=== PATIENT | female | born 1965 | race Caucasian/White ===

== ENCOUNTER → 2020-04-28 14:17 | Outpatient (BNVA) | payer BC, SELFPAY | PROVIDERS: Family Provider Pediatrics; PCP Pediatrics; Visit Provider Nurse Practitioner Family | DX: Z20.828 Contact with and (suspected) exposure to other viral communicable diseases (principal); J06.9 Acute upper respiratory infection, unspecified | CPT/HCPCS: 87635 ==

== ENCOUNTER → 2020-12-15 10:30 | Outpatient (BNVA) | payer BC, SELFPAY | PROVIDERS: Family Provider Pediatrics; PCP Pediatrics; Visit Provider Nurse Practitioner Family | DX: J06.9 Acute upper respiratory infection, unspecified (principal); Z20.822 Contact with and (suspected) exposure to COVID-19 | CPT/HCPCS: 87426 ==

== ENCOUNTER 2022-07-05 15:54 | Emergency (ER) | payer BC, SELFPAY ==
[2022-07-05 16:03] VITALS: BP 130/86; PULSE 92; RESP 14; TEMP 36.9; O2SAT 95
[2022-07-05 16:56] LABS: Basophils # 0.1 10^3/uL (0.0-0.1); Basophils % 0.4 %; Eosinophils % 0.2 %; Hematocrit 44.7 % (37.0-47.0); Hemoglobin 14.3 g/dL (11.5-15.3); Lymphocytes # 2.2 10^3/uL (0.8-4.8); Mean Corpuscular Hemoglobin 29.3 pg (28.0-34.0); Mean Corpuscular Volume 91.6 fl (81-99); Monocytes # 0.9 10^3/uL (0.2-0.9); Monocytes % 7.4 %; Neutrophils # 9.56 10^3/uL (1.8-7.7); Neutrophils % 74.8 %; Nucleated Red Blood Cells % 0 %; Platelet Count 333 10^3/cmm (130-400); Red Blood Count 4.88 10^6/uL (4.1-5.3); Red Cell Distribution Width 13.1 % (12.1-15.1); White Blood Count 12.8 10^3/uL (4.0-10.0)
[2022-07-05 17:19] LABS: Alanine Aminotransferase 16 U/L (0-33); Albumin Level 4.6 g/dL (3.5-5.2); Alkaline Phosphatase 97 U/L (35-105); Anion Gap 14.2 (5-19); Aspartate Amino Transferase 18 U/L (0-32); Blood Urea Nitrogen 8 mg/dL (6-20); Calcium 10.1 mg/dL (8.5-10.5); Carbon Dioxide 30 mmol/L (22-29); Chloride 98 mmol/L (98-107); Globulin 3.8 g/dL (1.3-4.6); Glomerular Filtration Rate 86.6 mL/min (90-130); Glucose 109 mg/dL (65-115); Lipase 33 U/L (13-60); Osmolality Calculated 285 mOsm/kg (285-295); Potassium 4.2 mmol/L (3.5-5.1); Sodium 138 mmol/L (136-145); Total Bilirubin 0.7 mg/dL (0.15-1.2); Total Protein 8.4 g/dL (6.6-8.7)
--- NOTE | 2022-07-05 18:00 | ED_ITS ---
HPI - Nausea/Vomiting/Diarrhea General: Chief complaint: Nausea/Vomiting/Diarrhea Stated complaint: N/V/D blood in stool Time Seen by Provider: 07/05/22 17:58 History of Present Illness: 57-year-old female comes in today for complaints of nausea and vomiting with diarrhea on Saturday. Since then patient has not had no further episodes of emesis but has had loose watery stools. Patient appears nontoxic. Patient denies any chronic medical problems. Patient had a hysterectomy. Patient has not had a screening colonoscopy. Patient takes no routine medications but occasionally will use magnesium for bowel regularity. Patient appears in no pain. Patient appears nontoxic. Associated nausea: Yes Associated symtoms: Reports headache(s) and nausea; Denies chest pain Review of Systems Const: Denies: fever(s) ENMT: Denies: throat pain Card: Denies: chest pain Resp: Denies: dyspnea GI: Reports: nausea, vomiting, diarrhea and hematochezia; Denies: constipation : Denies: flank pain or difficulty voiding Musc: Denies: extremity pain or extremity swelling Skin/Breast: Denies: rash Neuro: Reports: headache(s) PFS ED PFSH: Social History Smoking and tobacco status: never smoked Physical Exam Const: COMMON NORMALS: alert HENMT: COMMON NORMALS: normocephalic HEAD & SCALP: normocephalic MOUTH: Normal oral and palatal mucosa present Neck/C-Spine: COMMON NORMALS: full ROM Resp: COMMON NORMALS: normal respiratory effort and clear to auscultation bilaterally AUSCULTATION: clear to auscultation bilaterally Cardio: COMMON NORMALS: regular rate and regular rhythm RATE: regular rate RHYTHM: regular rhythm GI: COMMON NORMALS: Soft to palpation INSPECTION: Yes normal to inspection AUSCULTATION: Yes normoactive bowel sounds PALPATION: Yes Soft to palpation and Yes Tenderness to palpation present (GI) (Mild generalized) RECTAL EXAM: heme positive stool (Bright red jellylike stool) : COMMON NORMALS: Yes no CVA tenderness BLADDER/KIDNEY EXAM: Yes no CVA tenderness Back/Pelvis: COMMON NORMALS: no CVA tenderness THORACIC SPINE/UPPER BACK: No thoracic spinal tenderness LUMBAR SPINE/LOWER BACK: No lumbar spinal tenderness Extremity: COMMON NORMALS: no pedal edema Neuro: SENSORIUM/ORIENTATION: Yes alert Skin: COMMON NORMALS: turgor normal GENERAL SKIN EXAM: turgor normal Course Vital Signs: Vital signs: Vital Signs Temperature 98.5 F 07/05/22 16:03 Pulse Rate 84 07/05/22 21:00 Respiratory Rate 16 07/05/22 21:00 Blood Pressure 129/91 07/05/22 21:00 Pulse Oximetry 98 07/05/22 21:00 Oxygen Delivery Me thod 07/05/22 16:03 MDM - Nausea/Vomiting/Diarrhea Medical Decision Making 57-year-old female comes in today with complaints of nausea vomiting diarrhea x1 day followed by loose to diarrhea stools since Saturday. On exam abdomen soft with some mild tenderness. Bowel sounds are active. Rectal exam noted normal sphincter tone with some bright red jelly stool in her rectum. Differential diagnosis includes infectious colitis, hemorrhoid, gastroenteritis, diverticulitis. CBC showed a white count of 12,000, CMP was notable for some elevation in BUN at 30. Remainder of labs were unremarkable. Patient was given 1 L of IV fluid for some mild dehydration. CT of the abdomen pelvis noted colitis with no signs of perforation. Patient also had some incidental findings of diverticula and some bladder wall thickening. Recommended patient take Cipro and Flagyl for colitis due to the yoli amount of blood. Recommended further evaluation with colonoscopy. Patient reported understanding and agreed to plan. Lab Data 07/05/22 16:35 07/05/22 16:35 Radiology Impressions Abdomen/Pelvis CT 07/05/22 18:05 IMPRESSION: 1. Findings consistent with mild colitis in the descending colon and proximal sigmoid colon. No pneumatosis. 2. The bladder is incompletely filled, which can limit evaluation. Despite this, there is diffuse, mild wall thickening of the bladder. In the correct clinical setting, this may suggest cystitis. Recommend correlation with laboratory findings. 3. Small amount of free fluid in the pelvis. 4. Scattered diverticula in the sigmoid colon. No evidence for diverticulitis. 5. 2 dominant follicles in the right ovary and a dominant follicle in the left ovary. 6. Incidental/nonacute findings are listed in the report. Laboratory Results WBC 12.8 10^3/uL (4.0-10.0) H 07/05/22 16:35 RBC 4.88 10^6/uL (4.1-5.3) 07/05/22 16:35 Hgb 14.3 g/dL (11.5-15.3) 07/05/22 16:35 Hct 44.7 % (37.0-47.0) 07/05/22 16:35 MCV 91.6 fl (81-99) 07/05/22 16:35 MCH 29.3 pg (28.0-34.0) 07/05/22 16:35 MCHC 32.0 g/dL (30.0-36.0) 07/05/22 16:35 RDW 13.1 % (12.1-15.1) 07/05/22 16:35 Plt Count 333 10^3/cmm (130-400) 07/05/22 16:35 MPV 10.0 fL (7.4-10.4) 07/05/22 16:35 Neut % (Auto) 74.8 % 07/05/22 16:35 Lymph % (Auto) 17.0 % 07/05/22 16:35 Schleicher % (Auto) 7.4 % 07/05/22 16:35 Eos % (Auto) 0.2 % 07/05/22 16:35 Baso % (Auto) 0.4 % 07/05/22 16:35 Neut # (Auto) 9.56 10^3/uL (1.8-7.7) H 07/05/22 16:35 Lymph # (Auto) 2.2 10^3/uL (0.8-4.8) 07/05/22 16:35 Schleicher # (Auto) 0.9 10^3/uL (0.2-0.9) 07/05/22 16:35 Eos # (Auto) 0.0 10^3/uL (0.0-0.8) 07/05/22 16:35 Baso # (Auto) 0.1 10^3/uL (0.0-0.1) 07/05/22 16:35 Nucleated RBC % (auto) 0 % 07/05/22 16:35 Nucleated RBCs # 0.0 /100WBC 07/05/22 16:35 Sodium 138 mmol/L (136-145) 07/05/22 16:35 Potassium 4.2 mmol/L (3.5-5.1) 07/05/22 16:35 Chloride 98 mmol/L (98-107) 07/05/22 16:35 Carbon Dioxide 30 mmol/L (22-29) H 07/05/22 16:35 Anion Gap 14.2 (5-19) 07/05/22 16:35 BUN 8 mg/dL (6-20) 07/05/22 16:35 Creatinine 0.7 mg/dL (0.5-0.9) 07/05/22 16:35 GFR Calculation 86.6 mL/min (90-130) L 07/05/22 16:35 Glucose 109 mg/dL (65-115) 07/05/22 16:35 Calculated Osmolality 285 mOsm/kg (285-295) 07/05/22 16:35 Calcium 10.1 mg/dL (8.5-10.5) 07/05/22 16:35 Total Bilirubin 0.7 mg/dL (0.15-1.2) 07/05/22 16:35 AST 18 U/L (0-32) 07/05/22 16:35 ALT 16 U/L (0-33) 07/05/22 16:35 Alkaline Phosphatase 97 U/L (35-105) 07/05/22 16:35 Total Protein 8.4 g/dL (6.6-8.7) 07/05/22 16:35 Albumin 4.6 g/dL (3.5-5.2) 07/05/22 16:35 Globulin 3.8 g/dL (1.3-4.6) 07/05/22 16:35 Lipase 33 U/L (13-60) 07/05/22 16:35 Discharge Plan Discharge Patient Disposition: Home Clinical Impression: Colitis, Dehydration Condition: Stable Prescriptions: New ciprofloxacin HCl 500 mg tablet 500 mg PO BID Qty: 9 0RF metronidazole 500 mg tablet 500 mg PO BID Qty: 9 0RF Discharge Orders: Discharge ED (Routine); Ordered 07/05/22 Ordered By: Carlos Og Discharge Diet: Usual diet Discharge Activity: Increase activity as tolerated Patient Instructions: Infectious Colitis (ED) Activity Restrictions/Additional Instructions: Drink plenty of fluids. Take antibiotics as directed. Drink an electrolyte solution such as Pedialyte or half water and half clear Gatorade 8 ounces 3 times a day to help with hydration and replacing electrolytes. Follow-up with primary care in 3 to 5 days for recheck. I recommend further evaluation with colonoscopy if symptoms persist. Coding Level of Care Code ED Acoustical Tile Carpenters Supervisor for Lilian Grant
--- NOTE | 2022-07-05 18:05 | CTR_ITS ---
PROCEDURE INFORMATION: Exam: CT Abdomen And Pelvis With Contrast Exam date and time: 07/05/2022 8:03 PM Age: 57 years old Clinical indication: Nausea and vomiting; Prior surgery; Surgery type: Hysterectomy; Patient HX: C/O n/v/d with blood in stool. ; Additional info: N/v/d, blood in stool TECHNIQUE: Imaging protocol: Computed tomography of the abdomen and pelvis with contrast. Sagittal and coronal reformatted images were created and reviewed. Radiation optimization: All CT scans at this facility use at least one of these dose optimization techniques: automated exposure control; mA and/or kV adjustment per patient size (includes targeted exams where dose is matched to clinical indication); or iterative reconstruction. Contrast material: OMNI 350; Contrast volume: 100 ml; Contrast route: INTRAVENOUS (IV); REPORTING DATA: Count of CT and Cardiac NM exams in prior 12 months: This patient has received 0 known CTs and 0 known cardiac nuclear medicine studies in the 12 months prior to the current study. COMPARISON: No relevant prior studies available. RADIATION DOSE METRICS: Total DLP (mGy-cm): 890.99 FINDINGS: Lungs: Visualized lungs are clear. Pleural spaces: No pleural effusion. Heart: Visualized portions of the heart are unremarkable. Liver: The liver is unremarkable. Gallbladder and bile ducts: The gallbladder is unremarkable. No biliary ductal dilatation. Pancreas: The pancreas is unremarkable. No pancreatic ductal dilatation. Spleen: The spleen is unremarkable. Adrenal glands: The right and left adrenal glands are unremarkable. Kidneys and ureters: The right and left kidneys are unremarkable. The right and left ureters are unremarkable. Stomach and bowel: Scattered diverticula in the sigmoid colon. No evidence for diverticulitis. Multiple fecaliths in the right colon. There is mild wall thickening with surrounding mild inflammation of the descending colon and proximal sigmoid colon. No pneumatosis. No acute abnormality in the stomach. No acute abnormality in the small bowel. Appendix: There are multiple appendicoliths in the lumen of the appendix. No evidence for appendicitis. Intraperitoneal space: Small amount of free fluid in the pelvis. Vasculature: No evidence for aortic aneurysm or aortic dissection. Hepatic veins, portal veins, splenic vein, and SMV are patent. Lymph nodes: No lymphadenopathy. Urinary bladder: The bladder is incompletely filled, which can limit evaluation. Despite this, there is diffuse, mild wall thickening of the bladder. Reproductive: Patient has had a previous hysterectomy. 2 dominant follicles in the right ovary, the larger measures 2.3 x 2.1 cm (series 4, image 77). Dominant follicle in the left ovary measuring 1.8 x 1.7 cm (series 4, image 75). Bones/joints: Multilevel degenerative changes of varying severity in the visualized spine. Soft tissues: The extra-abdominal soft tissues are unremarkable. CT/CT abdomen pelvis w con* [id number] IMPRESSION: 1. Findings consistent with mild colitis in the descending colon and proximal sigmoid colon. No pneumatosis. 2. The bladder is incompletely filled, which can limit evaluation. Despite this, there is diffuse, mild wall thickening of the bladder. In the correct clinical setting, this may suggest cystitis. Recommend correlation with laboratory findings. 3. Small amount of free fluid in the pelvis. 4. Scattered diverticula in the sigmoid colon. No evidence for diverticulitis. 5. 2 dominant follicles in the right ovary and a dominant follicle in the left ovary. 6. Incidental/nonacute findings are listed in the report.
[2022-07-05] MEDS: sodium chloride 0.9% 1,000 ML 999 ML IV (18:17)
[2022-07-05 18:24] VITALS: BP 111/80; PULSE 89; O2SAT 98
[2022-07-05] MEDS: iohexol 350 mg/mL 500 mL Btl (per mL) IV (20:07)
[2022-07-05 21:00] VITALS: BP 129/91; PULSE 84; RESP 16; O2SAT 98
[2022-07-05] MEDS: ciprofloxacin 500 mg Tablet PO (21:08)
[2022-07-05] MEDS: metroNIDAZOLE 500 MG Tablet PO (21:08)
[2022-07-05 21:23] VITALS: BP 129/91; PULSE 86; RESP 16; O2SAT 96
== END 2022-07-05 21:21 | disposition home or self-care (01) ==
PROVIDERS: Nurse Practitioner Family; Emergency Provider Nurse Practitioner Family
DX: K52.9 Noninfective gastroenteritis and colitis, unspecified (principal); E86.0 Dehydration
CPT/HCPCS: 36415; 74177; 80053; 83690; 85025; 96360; 99285; J7030; Q9967

== ENCOUNTER 2023-06-28 06:55 | Emergency (ER) | payer BC, SELFPAY ==
[2023-06-28] VITALS (7 sets, daily range): BP systolic 127–160; BP diastolic 56–89; PULSE 76–100; RESP 15–17; TEMP 36.7; O2SAT 93–100
--- NOTE | 2023-06-28 07:06 | XR_ITS ---
WS: [id number] Right ankle, 3 views, 06/28/2023 Clinical Data: trauma Comparison: None. Findings: There is a comminuted fracture of the distal right fibula. There is soft tissue swelling over the lat eral malleolus. The ankle mortise and medial malleolus are intact. Impression: Fracture of distal right fibula.
--- NOTE | 2023-06-28 07:07 | ECG_ITS ---
[facility] Test Date: 2023-06-28 Pat Name: Ora Russell Department: Room: Gender: Female Transportation Clerk: : 1965 Requested By: Patrick Abdul Order Number: [id number] Jadyn MD: Zackary Lomax M.D. Measurements Intervals [place] Rate: 78 P: 59 IN: 174 QRS: 19 QRSD: 80 T: 49 QT: 379 QTc: 432 Interpretive Statements SINUS RHYTHM LOW QRS VOLTAGE IN PRECORDIAL LEADS [QRS DEFLECTION < 1.0 mV IN CHEST LEADS] No previous ECG available for comparison Electronically Signed On 06-28-2023 9:59:46 LONG WALL SHEAR OPERATOR by Zackary Lomax M.D. [id number]
--- NOTE | 2023-06-28 07:07 | XR_ITS ---
WS: [id number] Portable AP upright chest, 06/28/2023 Clinical Data: dyspnea/cough Comparison: None. Findings: No nodules, masses or effusions are seen. The heart is normal. The pulmonary vascularity is not increased. No pneumonia or pneumothorax is seen. Impression: Negative chest.
--- NOTE | 2023-06-28 07:17 | W.ED.SYNCOPE ---
HPI - Syncope General: Chief Complaint: Syncope Stated Complaint: passed out / right ankle pain / back pain Time Seen by Provider: 06/28/23 07:04 Source: patient Mode of arrival: EMS History of Present Illness: 58-year-old female presents emergency room via EMS after 2 syncopal episodes at home. Earlier this week when she had been doing some house chores and had onset of back pain while working partially stooped over. Pain is persisted throughout the week. She taken ibuprofen for it with minimal relief. She had also recently been exposed to influenza but is not had much for symptoms. This morning when she got out of bed she got lightheaded and dizzy and passed out she laid down again and when she stood up got very lightheaded and nearly passed out again. Her blood pressure was measured by her at that time to be around 80 systolic. She is not currently on any medications [id number] or prescription. No nausea vomiting or diarrhea no chest pain no shortness of breath no abdominal pain. No seizure-like activity with these episodes. She is complaining of some right ankle pain. MD complaint: almost passed out Onset (ago): minute(s) Witnessed: Yes - by Bystander Associated symptoms: Reports lightheadedness; Deny abdominal pain, chest pain, fever(s), headache(s), nausea, short of breath, vertigo or weakness Treatments prior to arrival: none Review of Systems Const: Denies: fever(s) Card: Reports: lightheadedness; Denies: chest pain Resp: Denies: dyspnea GI: Denies: abdominal pain or nausea : Denies: dysuria, urinary frequency or urinary urgency Musc: Denies: neck pain or back pain Skin/Breast: Denies: rash Neuro: Denies: headache(s) or vertigo [facility] PFSH: Social History Smoking and tobacco/nicotine status: never used tobacco/nicotine Physical Exam Const: COMMON NORMALS: no acute distress GENERAL APPEARANCE: cooperative and comfortable ORIENTATION/CONSCIOUSNESS: Yes awake, Yes oriented to person, Yes oriented to place and Yes oriented to time HENMT: COMMON NORMALS: normocephalic, atraumatic and hearing grossly normal bilaterally HEAD & SCALP: normocephalic and atraumatic Resp: COMMON NORMALS: normal respiratory effort, No retractions, No use of accessory muscles and clear to auscultation bilaterally AUSCULTATION: clear to auscultation bilaterally Cardio: COMMON NORMALS: regular rate, regular rhythm and No murmurs present (Cardio) RATE: regular rate RHYTHM: regular rhythm GI: COMMON NORMALS: Soft to palpation and No hepatosplenomegaly present AUSCULTATION: Yes normoactive bowel sounds PALPATION: Yes Soft to palpation, No Tenderness to palpation present (GI), No Guarding due to palpation present (GI) and Yes No hepatosplenomegaly present Extremity: COMMON NORMALS: normal to inspection, capillary refill normal, no clubbing, cyanosis or edema, no calf tenderness and no pedal edema Neuro: SENSORIUM/ORIENTATION: Yes oriented to person, Yes oriented to place and Yes oriented to time Skin: COMMON NORMALS: no rashes or lesions noted GENERAL SKIN EXAM: no rashes or lesions noted Course Vital Signs: Vital signs: Vital Signs Temperature 98.0 F 06/28/23 07:13 Pulse Rate 91 06/28/23 11:01 Respiratory Rate 15 06/28/23 11:01 Blood Pressure 127/81 06/28/23 11:01 Pulse Oximetry 93 06/28/23 11:01 Oxygen Delivery Me thod Room Air 06/28/23 11:01 MDM - Syncope Medical Decision Making 2 syncopal episodes associated with orthostasis. She is feeling better now. She is also complaining of some right ankle pain. X-ray shows distal fibula fracture with minimal displacement. Posterior splint applied nonweightbearing. Will discharge home with follow-up with orthopedics. If back pain persist follow-up with primary care. Medical Records I reviewed the patient's medical records. Lab Data I reviewed the patient's lab results. 06/28/23 07:19 06/28/23 07:19 Laboratory Results WBC 4.96 10^3/uL (3.29-11.43) 06/28/23 07:19 RBC 4.27 10^6/uL (3.85-5.65) 06/28/23 07:19 Hgb 12.70 g/dL (11.27-16.99) 06/28/23 07:19 Hct 38.9 % (36-47) 06/28/23 07:19 MCV 91.1 fl (85-98) 06/28/23 07:19 MCH 29.7 pg (27-33) 06/28/23 07:19 MCHC 32.6 g/dL (30-55) 06/28/23 07:19 RDW 13.1 % (12.1-15.1) 06/28/23 07:19 Plt Count 313 10^3/cmm (157-399) 06/28/23 07:19 MPV 9.4 fL (7.4-10.4) 06/28/23 07:19 Neut % (Auto) 59.7 % 06/28/23 07:19 Lymph % (Auto) 27.0 % 06/28/23 07:19 Rhea % (Auto) 10.9 % 06/28/23 07:19 Eos % (Auto) 1.8 % 06/28/23 07:19 Baso % (Auto) 0.4 % 06/28/23 07:19 Neut # (Auto) 2.96 10^3/uL (1.8-7.7) 06/28/23 07:19 Lymph # (Auto) 1.3 10^3/uL (0.8-4.8) 06/28/23 07:19 Rhea # (Auto) 0.5 10^3/uL (0.2-0.9) 06/28/23 07:19 Eos # (Auto) 0.1 10^3/uL (0.0-0.8) 06/28/23 07:19 Baso # (Auto) 0.0 10^3/uL (0.0-0.1) 06/28/23 07:19 Nucleated RBC % (auto) 0 % 06/28/23 07:19 Nucleated RBCs # 0.0 /100WBC 06/28/23 07:19 Sodium 139 mmol/L (136-145) 06/28/23 07:19 Potassium 4.0 mmol/L (3.5-5.1) 06/28/23 07:19 Chloride 101 mmol/L (98-107) 06/28/23 07:19 Carbon Dioxide 27 mmol/L (22-29) 06/28/23 07:19 Anion Gap 15.0 (5-19) 06/28/23 07:19 BUN 15 mg/dL (6-20) 06/28/23 07:19 Creatinine 0.7 mg/dL (0.5-0.9) 06/28/23 07:19 GFR Calculation 86.2 mL/min (90-130) L 06/28/23 07:19 Glucose 106 mg/dL (65-115) 06/28/23 07:19 Calculated Osmolality 289 mOsm/kg (285-295) 06/28/23 07:19 Calcium 8.8 mg/dL (8.5-10.5) 06/28/23 07:19 Total Bilirubin 0.5 mg/dL (0.15-1.2) 06/28/23 07:19 AST 15 U/L (0-32) 06/28/23 07:19 ALT 15 U/L (0-33) 06/28/23 07:19 Alkaline Phosphatase 83 U/L (35-105) 06/28/23 07:19 Troponin T Baseline 8 ng/L (0-10) 06/28/23 07:19 Troponin T 120 Minute 6.00 ng/L (0-10) 06/28/23 08:44 Delta Troponin T -2.00 ABS# (0-10) L 06/28/23 08:44 Total Protein 7.5 g/dL (6.6-8.7) 06/28/23 07:19 Albumin 4.1 g/dL (3.5-5.2) 06/28/23 07:19 Globulin 3.4 g/dL (1.3-4.6) 06/28/23 07:19 Urine Color Yellow (Yellow) 06/28/23 07:36 Urine Appearance Clear (CLEAR) 06/28/23 07:36 Urine pH 8 (5-7) H 06/28/23 07:36 Ur Specific Perry 1.010 (1.005-1.030) 06/28/23 07:36 Urine Protein Neg (Negative) 06/28/23 07:36 Urine Glucose (UA) Norm (Normal) 06/28/23 07:36 Urine Ketones Negative (Negative) 06/28/23 07:36 Urine Blood Neg (Negative) 06/28/23 07:36 Urine Nitrate Negative (Negative) 06/28/23 07:36 Urine Bilirubin Neg (Negative) 06/28/23 07:36 Prot Sulfosalicylic Acd Negative (Negative) 06/28/23 07:36 Urine Urobilinogen Norm mg/dL (Negative) 06/28/23 07:36 Ur Leukocyte Esterase Negative (Negative) 06/28/23 07:36 Urine RBC 0-4 /hpf (0-2) H 06/28/23 07:36 Urine WBC 0-4 /hpf (0-5) H 06/28/23 07:36 Ur Squamous Epith Cells 25-40 /hpf (0-5) H 06/28/23 07:36 Amorphous Sediment 4+ /hpf 06/28/23 07:36 Urine Bacteria 1+ /hpf (NONE) H 06/28/23 07:36 Urine Mucus Trace /hpf 06/28/23 07:36 All radiology interpretation(s) finalized by discharge Discharge Plan Discharge Patient Disposition: Home Clinical Impression: Syncope due to orthostatic hypotension Fracture of distal end of right fibula Qualifiers: Encounter type: initial encounter Fracture type: closed Fracture morphology: other fracture Qualified Code(s): S82.831A - Other fracture of upper and lower end of right fibula, initial encounter for closed fracture Condition: Stable Prescriptions: New hydrocodone-acetaminophen 5-325 mg tablet 1 tab PO Q6H PRN (Reason: pain) Qty: 15 0RF Discontinued NyQuil 7.5-60-30-1,000 mg/30 mL Liquid 30 ml PO Q6H PRN (Reason: Cold Symptoms) No Action zinc acetate 50 mg (zinc) Capsule 50 mg PO DAILY Vitamin C 500 mg Tablet 500 mg PO DAILY ibuprofen 200 mg Tablet 400 mg PO Q6H PRN (Reason: Pain) Vitamin D3 25 mcg (1,000 unit) Capsule 25 mcg PO DAILY Discharge Orders: Discharge ED (Routine); Ordered 06/28/23 Ordered By: Patrick Powell Discharge Diet: Usual diet Discharge Activity: Limit activity as instructed Patient Instructions: Opioid Safety, Pain Management Activity Restrictions/Additional Instructions: Thank you for choosing [facility] for your healthcare needs today. Please realize this is an emergency room and that we are providing you with a medical screening exam and this may not be complete and all inclusive of all the testing and or work up that you may need to determine your ailment or severity of your illness. It is very important that you follow up as instructed or that you return to the Emergency Department should you have concerns or if your condition changes or worsens in any way. You are seen today after a episode of syncope (passing out). This likely caused by change in body position (orthostasis). Monitor at home if this persist follow-up with your primary care doctor for further evaluation as appropriate. You also were found to have a distal fibula fracture. You should be nonweightbearing in your right leg using the crutches leave the splint in place. Use pain medications as needed case management will get you an appointment with the orthopedics for definitive care to the fracture. Coding Level of Care Code ED Put In Beat Adjuster for Lilian Grant
[2023-06-28 07:24] LABS: Basophils % 0.4 %; Eosinophils # 0.1 10^3/uL (0.0-0.8); Eosinophils % 1.8 %; Hematocrit 38.9 % (36-47); Lymphocytes # 1.3 10^3/uL (0.8-4.8); Mean Corpuscular HGB Conc 32.6 g/dL (30-55); Mean Corpuscular Hemoglobin 29.7 pg (27-33); Mean Corpuscular Volume 91.1 fl (85-98); Mean Platelet Volume 9.4 fL (7.4-10.4); Monocytes # 0.5 10^3/uL (0.2-0.9); Monocytes % 10.9 %; Neutrophils # 2.96 10^3/uL (1.8-7.7); Neutrophils % 59.7 %; Nucleated Red Blood Cells % 0 %; Platelet Count 313 10^3/cmm (157-399); Red Blood Count 4.27 10^6/uL (3.85-5.65); Red Cell Distribution Width 13.1 % (12.1-15.1); White Blood Count 4.96 10^3/uL (3.29-11.43)
--- NOTE | 2023-06-28 07:45 | PC.PHAR ---
pt states she takes no prescription medications just been taking otc meds entered
[2023-06-28] MEDS: sodium chloride 0.9% 1,000 ML 999 ML IV (07:47)
[2023-06-28 07:51] LABS: Troponin(5th) Baseline 8 ng/L (0-10)
[2023-06-28 07:55] LABS: Add Urine Microscopic? YES; Bilirubin Urine Neg (Negative); Blood Urine Neg (Negative); Glucose Urine UA Norm (Normal); Ketones Urine Negative (Negative); Leukocyte Esterase Urine Negative (Negative); Nitrate Urine Negative (Negative); Protein Urine Neg (Negative); Sulfosalicylic Acid Urine Negative (Negative); Urine Appearance Clear (CLEAR); Urine Color Yellow (Yellow); Urobilinogen Urine Norm (Negative); pH Urine 8 (5-7)
[2023-06-28 07:56] LABS: Add Urine Culture? No; Amorphous Sediment Urine 4+ /hpf; Bacteria Urine 1+ /hpf; Mucus Urine TRACE /hpf; RBC Urine 0-4 /hpf (0-2); Squamous Epithelial Cell Urine 25-40 /hpf (0-5); WBC Urine 0-4 /hpf (0-5)
[2023-06-28] MEDS: HYDROcodone-acetaminophen 5-325 mg Tablet 1 TAB PO (08:12)
[2023-06-28 08:29] LABS: Alanine Aminotransferase 15 U/L (0-33); Albumin Level 4.1 g/dL (3.5-5.2); Alkaline Phosphatase 83 U/L (35-105); Aspartate Amino Transferase 15 U/L (0-32); Blood Urea Nitrogen 15 mg/dL (6-20); Calcium 8.8 mg/dL (8.5-10.5); Carbon Dioxide 27 mmol/L (22-29); Chloride 101 mmol/L (98-107); Creatinine Clr Calc Pharmacy 87.7939; Globulin 3.4 g/dL (1.3-4.6); Glomerular Filtration Rate 86.2 mL/min (90-130); Glucose 106 mg/dL (65-115); Osmolality Calculated 289 mOsm/kg (285-295); Sodium 139 mmol/L (136-145); Total Bilirubin 0.5 mg/dL (0.15-1.2); Total Protein 7.5 g/dL (6.6-8.7)
--- NOTE | 2023-06-28 09:21 | ECG_ITS ---
[facility] Test Date: 2023-06-28 Pat Name: Ora Russell Department: Room: Gender: Female Vice President For Philanthropy: : 1965 Requested By: Patrick Abdul Order Number: [id number] Jadyn MD: Zackary Lomax M.D. Measurements Intervals [place] Rate: 91 P: 61 FL: 165 QRS: 14 QRSD: 73 T: 57 QT: 358 QTc: 442 Interpretive Statements SINUS RHYTHM MINIMAL ST DEPRESSION [0.025+ mV ST DEPRESSION] Compared to ECG 06/28/2023 07:11:54 ST (T wave) deviation now present Electronically Signed On 06-28-2023 10:03:17 PRODUCTION DEPARTMENT SUPERVISOR by Zackary Lomax M.D. [id number]
--- NOTE | 2023-07-01 09:07 | DCPLANNER ---
Message was sent to ortho on 07/01/23 at 0908. Clinic to contact patient. I also contacted Mrs. Russell to let her know the referral was sent to ortho.
== END 2023-06-28 11:01 | disposition home or self-care (01) ==
PROVIDERS: Emergency Provider Family Medicine
DX: I95.1 Orthostatic hypotension (principal); S82.831A Other fracture of upper and lower end of right fibula, initial encounter for closed fracture; W18.39XA Other fall on same level, initial encounter
CPT/HCPCS: 29515; 71045; 73610; 80053; 81001; 84484; 85025; 93005; 96360; 99285; E0114; J7030

== ENCOUNTER 2023-07-02 10:38 | Outpatient (CLI) | payer BC, SELFPAY | END 2023-07-02 10:39 | disposition home or self-care (01) | LOC: SPT 10:38 | PROVIDERS: Visit Provider Podiatrist Foot & Ankle Surgery | DX: Z46.89 Encounter for fitting and adjustment of other specified devices (principal); S82.831D Other fracture of upper and lower end of right fibula, subsequent encounter for closed fracture with routine healing; X58.XXXD Exposure to other specified factors, subsequent encounter | CPT/HCPCS: 97760; L4361 ==

== ENCOUNTER 2023-07-04 10:34 | Day surgery (SDC) | payer BC, SELFPAY ==
[2023-07-04] VITALS (11 sets, daily range): BP systolic 112–143; BP diastolic 71–90; PULSE 78–93; RESP 14–23; TEMP 36.2–37; O2SAT 95–98; BMI 32.6
--- NOTE | 2023-07-04 08:16 | XR_ITS ---
WS: [id number] Exam: XR ankle LT 1V [id number] Date/Time of Exam: 07/04/2023 8:16 AM Reason For Exam: JEFFRY PICS AP and lateral C-arm images of the LEFT ankle are submitted. There is plate and screw fixation involv ing a fracture of the lower fibula. Alignment appears satisfactory for healing.
[2023-07-04] MEDS: sodium chloride 0.9% 1,000 ML 30 ML IV (11:39)
--- NOTE | 2023-07-04 11:47 | W.PM.OPSUD ---
Surgery/Procedure H&P Update DATE OF PROCEDURE: July 04, 2023 DATE H&P PERFORMED: 07/02/23 H&P UPDATE INFORMATION: I have reviewed H&P completed within last 30 days, I have examined patient prior to procedure, No changes to prior documentation and H&P is in [facility] EMR on date indicated PREOP DIAGNOSIS: Right fibular fracture PLANNED PROCEDURE: Operation Date: 07/04/23 12:00 Proposed Procedures p ORIF Ankle ORIF Fibula/Open reduction internal fixation right fibular fracture(Right) - Nima Brown DPM
[2023-07-04] MEDS: acetaminophen 1,000 MG/100 ML PIGGYBACK 400 MG IV (12:06)
[2023-07-04] MEDS: gabapentin 300 mg Capsule PO (12:06)
--- NOTE | 2023-07-04 12:08 | ANES.PREANE2 ---
Pre-Anesthetic Assessment Height/Weight: Height 1.57 m Weight 81 kg Temp Pulse Resp BP Pulse Ox O2 Del Method 97.9 F 88 16 136/81 96 Room Air 07/04/23 11:10 07/04/23 11:10 07/04/23 11:10 07/04/23 11:10 07/04/23 11:10 07/04/23 11:16 Preop Diagnosis: Right fibular fracture Operation Date: 07/04/23 12:00 Proposed Procedures p ORIF Ankle ORIF Fibula/Open reduction internal fixation right fibular fracture(Right) - Nima Brown DPM Familial anesthetic complications: None Was Beta Trinidad taken within 24 hours: N/A Was Clonidine taken within 24 hours: N/A Last intake: Intake Last Liquid Date 07/03/23 Last Liquid Time 22:00 Last Solid Date 07/03/23 Last Solid Time 21:00 Social No alcohol and No tobacco Exam alert, oriented x 3, clear to auscultation bilaterally and regular rate & rhythm Airway Mallampati: Class II Dentition: full Anesthetic Plan ASA status: 2 Anesthesia: General and Regional (specify below) Risk of > 500 ml blood loss (7ml/kg in children): No Medications/Allergies Home Medications Medication Instructions Recorded Confirmed Last Taken Type ascorbic acid (vitamin C) 500 mg 500 mg PO DAILY 06/28/23 07/03/23 07/03/23 History tablet (Vitamin C) cholecalciferol (vitamin D3) 25 25 mcg PO DAILY 06/28/23 07/03/23 07/03/23 History mcg (1,000 unit) capsule (Vitamin D3) hydrocodone 5 mg-acetaminophen 325 1 tab PO Q6H PRN pain #15 tabs 06/28/23 07/03/23 07/03/23 Rx mg tablet ibuprofen 200 mg tablet 400 mg PO Q6H PRN Pain 06/28/23 07/03/23 07/03/23 History zinc acetate 50 mg (zinc) capsule 50 mg PO DAILY 06/28/23 07/03/23 07/03/23 History CAM boot #1 ea 07/02/23 07/02/23 Unknown Rx fosfomycin tromethamine 3 gram 1 packet PO ONCE #1 ea 07/03/23 07/03/23 07/03/23 Rx oral packet hydrocodone 5 mg-acetaminophen 325 1 tab PO Q6H PRN pain #28 tabs 07/04/23 Unknown Rx mg tablet Allergies Allergy/AdvReac Type Severity Reaction Status Date / Time No Known Allergies Allergy Verified 07/03/23 13:08 Current Medications Generic Name Dose Route Start Last Admin Trade Name Freq PRN Reason Stop Dose Admin Sodium Chloride 1,000 mls @ 30 mls/hr 07/04/23 11:00 07/04/23 11:39 Sodium Chloride 0.9% IV 07/05/23 10:59 30 mls/hr .Q24H EVA Administration PFSH Anesthesia Surgical History (Updated 07/02/23 @ 12:09 by Julissa Lloyd MD) History of hysterectomy Social History Smoking and tobacco/nicotine status: never used tobacco/nicotine Data Anesthesia Cardiac Studies: No Data to Display
--- NOTE | 2023-07-04 12:09 | ANES.PROC ---
Anesthesia Procedures Procedure/Date: 07/04/23 Nerve Block ^: Nerve Block 1: Main Anesthesia: general anesthesia Time Out Performed: Yes Consent: requested by attending/covering physician, from patient, from other, risks and benefits reviewed and patient agrees to proceed Nerve block location: popliteal (R) Anesthesia monitors applied: pulse oximetry, EKG and BP cuff Nerve block position: supine Anesthetic Used: ropivicaine 0.5% (30 ml) and with decadron (4 mg) Ultrasound used to: recognize landmarks Nerve Stimulator Used?: No Interscalene/Femoral BLK: 4 stimuplex 21 g needle used for position and inplane approach, visualize local anesthetic spread and no vascular puncture identified Injection: neg aspiration of heme Patient Tolerated Procedure: well and no complications Complications: none
[2023-07-04] MEDS: ceFAZolin 2,000 MG in sodium chloride 0.9% (plus) 50 ML 100 MG IV (12:16)
--- NOTE | 2023-07-04 13:23 | W.PM.BPON ---
Date of procedure: 07/04/2023 Surgeon name: Jt AdamsPEzekiel Environmental [employer] Program Director(s) name(s): Ashlee Procedure(s) performed: Open reduction internal fixation right fibular fracture Description of findings: Right distal fibular fracture Estimated blood loss: 5 cc Tourniquet time: 45 minutes Specimen(s) removed: None Post-operative diagnosis: Right distal fibular fracture
--- NOTE | 2023-07-04 21:00 | PM.OP ---
Operative Report Date of procedure: June Pre-op diagnosis: Right distal fibular fracture Post-op diagnosis: Same Post-op findings: Anatomic reduction of right distal fibular fracture with stable syndesmosis Procedure done: 1. Open reduction internal fixation right fibular fracture CPT 05403 Implants: Anatomic fibular plate from [employer] Surgeon: Nima Brown DPM Director Inbound Sales: Ashlee Estimated blood loss: 5 cc 45 minutes Complications: None Findings: See above Procedure: Patient is a 58-year-old female that has a history of right distal fibular fracture. The extent of the injury necessitates open reduction internal fixation. A lengthy discussion regarding the procedure, including risks and complications has been had with the patient and is noted in the recent clinic note. Written and verbal consent have been obtained. All patient questions have been answered to the patient?s satisfaction. No written or verbal guarantees have been given or implied. The patient has been NPO since midnight. The history has been reviewed and the history and physical is current. The signed consent was confirmed and placed in the patient chart. Patient imaging has been reviewed and is consistent with the diagnosis. Under mild sedation, the patient was brought into the operating room and placed on the table in the supine position. IV antibiotics were given by the anesthesia team as preoperative surgical prophylaxis. General sedation was then performed by the anesthesiateam. A popliteal block was performed with anesthesia department. A pneumatic tourniquet was then placed about the right thigh. The operative extremity was then prepped and draped in the usual fashion. The extremity was then elevated and exsanguinated before the tourniquet was inflated to 325 mmHg. After inflation, the following procedure was then performed. Attention was directed to the lateral aspect of the right ankle where a 7 cm incision was made overlying the fibula. Dissection was carried down through subcutaneous the superficial fascia to the level of the periosteum which was incised and reflected anteriorly to expose the distal fibular fracture. Hematoma of the fracture site was removed using a combination of curette, rongeur and dental pick. After removal of the hematoma the site was irrigated with sterile saline. Lobster-claw reduction clamp was used to reduce the distal fibular fracture to anatomic position. This was temporarily fixated using guidewires. Next, an anatomical fibular plate from [employer] was applied to the lateral aspect of the fibula. This was drilled and filled using combination of locking and nonlocking screws per the manufacture protocol. Good position of the plate and screws was noted clinically as well as on C-arm imaging. The syndesmosis was stressed and was noted to be intact. Site was irrigated with copious amounts sterile saline. Attention was then directed to closure. Deep tissue was closed with 2-0 Vicryl followed by subcuticular closure with 3-0 Vicryl and skin closure using 3-0 nylon in horizontal mattress fashion. The tourniquet was let down good hyperemic response was noted all digits of the right foot. The incision site was dressed with Xeroform, 4 x 4 gauze, Kerlix, Ankur bandage. Patient was placed in a cam boot. The patient tolerated the procedure and anesthesia well and without complication. The patient was transported from the operating room to the recovery room with vital signs stable and vascular status intact to all digits of the right foot. The patient was given both written and verbal instructions to remain nonweightbearing to the operative extremity, to keep dressings/splint clean, dry and intact and to take pain medication as directed. The patient will follow-up in the outpatient setting at their scheduled appointment. The patient was discharged with my personal number and was instructed to call if any questions or issues should arise. They were discharged home once anesthesia criteria was met.
== END 2023-07-04 15:20 | disposition home or self-care (01) ==
PROVIDERS: PCP Family Medicine; Visit Provider Podiatrist Foot & Ankle Surgery
PROC: (CPT 27792; principal; 2023-07-04 12:00)
DX: S82.401A Unspecified fracture of shaft of right fibula, initial encounter for closed fracture (principal); W19.XXXA Unspecified fall, initial encounter
CPT/HCPCS: 27792; 73600; 76000; C1713; J0131; J0690; J1100; J2250; J2405; J2704; J2795; J3010; J7030

== ENCOUNTER 2023-07-08 10:40 | Outpatient (CLI) | payer BC, SELFPAY ==
--- NOTE | 2023-07-08 10:45 | USCV_ITS ---
Ora Russell Age: 58 Gender: F : 1965 Exam Date: 07/08/2023 11:25 Ordering Phys: Julissa Lloyd MD Technologist: Camila Bowles [place] [facility] [place]: sync[place] BP: 136 / 80 HR: 0 Rhythm: Sinus Technical Quality: Good MEASUREMENTS (Male / Female) Normal Values 2D ECHO LV Diastolic Diameter PLAX 4.3 cm 4.2 - 5.9 / 3.9 - 5.3 cm IVS Diastolic Thickness 0.8 cm 0.6 - 1.0 / 0.6 - 0.9 cm IVS Systolic Thickness 1.8 cm LVPW Diastolic Thickness 0.6 cm 0.6 - 1.0 / 0.6 - 0.9 cm LVPW Systolic Thickness 0.8 cm LVOT Diameter 2.0 cm LV Ejection Fraction 2D Teich 54.4 % LV Ejection Fraction MOD 2C 73.8 % LV Ejection Fraction 2C AL 0.0 % LA Diameter 2.8 cm Aorta at Sinotubular Diameter 2.4 cm IVC Diameter 1.3 cm M-MODE LA Ao Ratio MM 1.0 AV Cusp Separation MM 1.7 cm DOPPLER AV Peak Velocity 164.0 cm/s LVOT Peak Velocity 166.0 cm/s AV Area Cont Eq vti 3.3 cm squared AV Area Cont Eq pk 3.2 cm squared MV Peak Velocity 91.0 cm/s MV Area PHT 4.5 cm squared Mitral E to A Ratio 1.0 TV Peak Velocity 95.8 cm/s TR Peak Velocity 145.0 cm/s TR Peak Gradient 8.4 mmHg TR Mean Velocity 97.0 cm/s TR Mean Gradient 4.4 mmHg TR Velocity Time Integral 26.2 cm TV Peak E Velocity 83.0 cm/s PV Peak Velocity 119.0 cm/s RV Ejection Time 0.3 s FINDINGS Left Ventricle Left ventricle is normal in size. LV systolic function is normal with EF of 60 to 65%. No regional wall motion abnormalities are seen. Right Ventricle Normal in size and function Right Atrium Normal in size Left Atrium Normal in size Mitral Valve Structurally normal mitral valve. Mild mitral regurgitation. Aortic Valve Structurally normal aortic valve. No significant stenosis or regurgitation. Tricuspid Valve Mild tricuspid regurgitation. Insufficient TR jet to calculate RVSP. Pulmonic Valve Not well visualized Pericardium Grossly normal Aorta Normal in size IVC Appears to be normal CONCLUSIONS LV systolic function is normal with EF of 60 to 65%. Mild mitral regurgitation. Mild tricuspid regurgitation. No comparison studies are available. Zackary Lomax MD (Electronically Signed) Final Date: 15 July 2023 11:27 S
== END 2023-07-08 10:41 | disposition home or self-care (01) ==
LOC: RAD 10:41
PROVIDERS: PCP Family Medicine; Visit Provider Family Medicine
DX: R55 Syncope and collapse (principal)
CPT/HCPCS: 81001; 93306

== ENCOUNTER → 2023-07-17 14:58 | Outpatient (BNVA) | payer BC, SELFPAY | PROVIDERS: PCP Family Medicine; Visit Provider Podiatrist Foot & Ankle Surgery | DX: S82.831A Other fracture of upper and lower end of right fibula, initial encounter for closed fracture; W19.XXXA Unspecified fall, initial encounter | CPT/HCPCS: 73610 ==

== ENCOUNTER → 2023-07-31 14:48 | Outpatient (BNVA) | payer BC, SELFPAY | PROVIDERS: PCP Family Medicine; Visit Provider Podiatrist Foot & Ankle Surgery | DX: M25.571 Pain in right ankle and joints of right foot (principal); S82.831D Other fracture of upper and lower end of right fibula, subsequent encounter for closed fracture with routine healing; X58.XXXD Exposure to other specified factors, subsequent encounter; Z98.890 Other specified postprocedural states; B35.1 Tinea unguium | CPT/HCPCS: 36415; 73610; 80053 ==

== ENCOUNTER 2023-08-14 06:00 | Outpatient (CLI) | payer BC, SELFPAY | END 2023-08-14 06:01 | LOC: SPT 08-19 10:29 | PROVIDERS: PCP Family Medicine; Visit Provider Podiatrist Foot & Ankle Surgery | DX: Z47.89 Encounter for other orthopedic aftercare (principal) | CPT/HCPCS: 97760; L1902 ==

== ENCOUNTER → 2023-08-14 14:01 | Outpatient (BNVA) | payer BC, SELFPAY | PROVIDERS: PCP Family Medicine; Visit Provider Podiatrist Foot & Ankle Surgery | DX: M25.571 Pain in right ankle and joints of right foot (principal); B35.1 Tinea unguium; Z98.890 Other specified postprocedural states; S82.831D Other fracture of upper and lower end of right fibula, subsequent encounter for closed fracture with routine healing; X58.XXXD Exposure to other specified factors, subsequent encounter | CPT/HCPCS: 73610 ==

== ENCOUNTER 2023-08-28 10:50 | Outpatient (CLI) | payer BC, SELFPAY ==
[2023-08-28 12:09] LABS: Alanine Aminotransferase 15 U/L (0-33); Albumin Level 4.4 g/dL (3.5-5.2); Alkaline Phosphatase 88 U/L (35-105); Anion Gap 13.8 (5-19); Aspartate Amino Transferase 23 U/L (0-32); Blood Urea Nitrogen 10 mg/dL (6-20); Calcium 9.8 mg/dL (8.5-10.5); Carbon Dioxide 28 mmol/L (22-29); Chloride 100 mmol/L (98-107); Globulin 3.6 g/dL (1.3-4.6); Glomerular Filtration Rate 86.2 mL/min (90-130); Glucose 96 mg/dL (65-115); Osmolality Calculated 285 mOsm/kg (285-295); Potassium 3.8 mmol/L (3.5-5.1); Sodium 138 mmol/L (136-145); Total Bilirubin 0.5 mg/dL (0.15-1.2)
== END 2023-08-28 10:51 | disposition home or self-care (01) ==
LOC: LAB 10:51
PROVIDERS: PCP Family Medicine; Visit Provider Podiatrist Foot & Ankle Surgery
DX: B35.1 Tinea unguium (principal)
CPT/HCPCS: 36415; 80053

== ENCOUNTER → 2024-09-28 17:44 | Outpatient (BNVA) | payer BC, SELFPAY | PROVIDERS: PCP Family Medicine; Visit Provider Nurse Practitioner | DX: S92.311A Displaced fracture of first metatarsal bone, right foot, initial encounter for closed fracture (principal); X58.XXXA Exposure to other specified factors, initial encounter; R93.6 Abnormal findings on diagnostic imaging of limbs; M79.89 Other specified soft tissue disorders; M89.9 Disorder of bone, unspecified | CPT/HCPCS: 73630 ==

== ENCOUNTER → 2024-10-13 16:00 | Outpatient (BNVA) | payer BC, SELFPAY | PROVIDERS: PCP Family Medicine; Visit Provider Podiatrist Foot & Ankle Surgery | DX: M79.671 Pain in right foot (principal); S99.191A Other physeal fracture of right metatarsal, initial encounter for closed fracture; X58.XXXA Exposure to other specified factors, initial encounter | CPT/HCPCS: 73630 ==

== ENCOUNTER → 2024-10-27 15:36 | Outpatient (BNVA) | payer BC, SELFPAY | PROVIDERS: PCP Family Medicine; Visit Provider Podiatrist Foot & Ankle Surgery | DX: S99.191A Other physeal fracture of right metatarsal, initial encounter for closed fracture (principal); X58.XXXA Exposure to other specified factors, initial encounter | CPT/HCPCS: 73630 ==

== ENCOUNTER → 2024-11-10 14:40 | Outpatient (BNVA) | payer BC, SELFPAY | PROVIDERS: PCP Family Medicine; Visit Provider Podiatrist Foot & Ankle Surgery | DX: S99.191A Other physeal fracture of right metatarsal, initial encounter for closed fracture (principal); X58.XXXA Exposure to other specified factors, initial encounter | CPT/HCPCS: 73630 ==

== ENCOUNTER → 2024-11-24 15:38 | Outpatient (BNVA) | payer BC, SELFPAY | PROVIDERS: PCP Family Medicine; Visit Provider Podiatrist Foot & Ankle Surgery | DX: M79.671 Pain in right foot (principal); B35.1 Tinea unguium; S99.191A Other physeal fracture of right metatarsal, initial encounter for closed fracture; X58.XXXA Exposure to other specified factors, initial encounter | CPT/HCPCS: 36415; 73630; 80053 ==

== ENCOUNTER → 2024-12-29 14:41 | Outpatient (BNVA) | payer BC, SELFPAY | PROVIDERS: PCP Family Medicine; Visit Provider Podiatrist Foot & Ankle Surgery | DX: B35.1 Tinea unguium (principal) | CPT/HCPCS: 36415; 80053 ==